=== PATIENT | male | born 1960 | race Caucasian/White ===

== ENCOUNTER 2017-05-14 13:57 | Day surgery (SDC) | payer OTHER ==
[~2017-05-14] VITALS: Ht 175.3 cm; Wt 91.3 kg
[2017-05-14] VITALS (8 sets, daily range): BP systolic 125–145; BP diastolic 84–94; PULSE 68–82; RESP 11–17; O2SAT 94–97
[~2017-05-14 13:57] MED LIST: FENO160T PO; HYDR30CR74 RC; LISI10TA PO; Lactated Ringer's 1,000 ML IV SCH; PRAV40TA PO
[2017-05-14] MEDS ORDERED: Dexamethasone 4 mg/mL Inj ONE (13:58)
[2017-05-14] MEDS ORDERED: fentaNYL-PF 50 mCg/mL 2 mL Inj ONE (13:58)
[2017-05-14] MEDS ORDERED: Ondansetron 2 mg/mL 2 mL Inj ONE (13:58)
[2017-05-14] MEDS ORDERED: Ketamine 10 mg/mL 20 mL Inj ONE (13:58)
[2017-05-14] MEDS ORDERED: Propofol 10,000 mCg/mL 20 mL Inj ONE (13:58)
[2017-05-14] MEDS ORDERED: Lactated Ringer's 1,000 ML IV ONE (17:28)
[2017-05-14] MEDS ORDERED: Lactated Ringer's 1,000 ML IV SCH (17:43)
[2017-05-14] MEDS ORDERED: Lactated Ringer's 500 ML IV PRN (17:43)
--- NOTE | 2017-05-14 17:43 | PCM.HPANE ---
Patient Data Surgeon Admitting Provider: Attending Provider:Araceli Byrne MD Primary Care Physician:Jose Alfredo Harvey MD Other Provider: Reason for Visit Internal And External Hemorrhoids Ht/WT & BMI Height (Feet): 5 Height (Inches): 9 Weight (Kilograms): 91.3 Body Mass Index 29.00 Allergies Coded Allergies: No Known Allergies (Verified , 09/04/16) Past Anesthesia History Anesthesia History: Denies:: Abnormal Airway, Anesthesia Reactions, Difficult Intubation, Fam Anesthesia Reaction (uncle- cannot take novocaine of any kind), Fam Malignant Hypertherm, Malignant Hyperthermia Diabetes History Hx Diabetes?: No MRSA MRSA: No Medications Hypertension Medication: Yes Home Meds Incl Beta Flynn: No Reported Medications Fenofibrate (Tricor)145 Mg [id number] Mg PO DAILY 30 Days Ref 0 05/06/17 Hydrocortisone (Proctozone-Hc)30 Gm Cream.appl30 Gm RC PRN rectal pain 05/06/17 Pravastatin 40 Mg [id number] Mg PO DAILY Ref 0 05/06/17 Lisinopril 10 Mg [id number] Mg PO DAILY 30 Days Ref 0 05/06/17 History History of ENT Problems?: Yes HEENT History: Positive for:: Hearing Problem Denies:: Abnormal Airway Cataracts (monitoring - no surgery) Difficult Intubation Dysphagia Glaucoma Sinus Problem Denture Type: None Teeth Condition: Within Normal Limits Hx of Heart Problems?: Yes Cardiovascular History: Positive for:: Hypertension Irregular Heartbeat (remote hx of wof parkinsons white (not for 19 years)) Denies:: AICD Heart Murmur Pacemaker Peripheral Vascular Hx of Respiratory Problem?: No Respiratory History: Denies:: Asthma COPD Emphysema Oxygen Administration Pneumonia Tuberculosis Use of C-PAP Machine Use of Inhalers / NEBS Hx Neurologic Problems?: No Neurological History: Denies:: CVA Dementia Headaches (not for many years) Multiple Sclerosis Parkinson's Disease Seizures Hx of GI Problems?: Yes Hx of Problems?: No Genitourinary History: Denies:: Kidney Stones Urinary Tract Infection Skin History: Denies:: History Skin Disorders? Pressure Ulcers Hx Musculoskeletal Problems?: No Musculoskeletal History: Denies:: Back Injury Degenerative Joint Fibromyalgia Joint Replacement Myasthenia Gravis Osteoarthritis Systemic Lupus Psycho Social History: Denies:: Anxiety Hx Depression Hx Surgeries?: Yes (RIGHT THUMB, RIGHT ELBOW, LEFT SHOULDER, TONSILS) Hx Any Other Health Problems?: Yes Other History: Denies:: Cancer Thyroid Disease History Blood Transfusions: Positive for:: Accept Blood Products? Denies:: Blood Transfusions Hx Diabetes: No Hx Alcohol Use: YesAlcoholic Drinks Per Day: 3-4 drinks day- (2 days week only )Hx Substance Use: No Smoking Status: Current Every Day Smoker Have You Smoked inLast 12 mo: Yes (4 cigars daily ) Stop/Bang S-Snoring: Do You Snore Loudly: No T-Tired: feel tired, fatigued: No O-Obsered: Observed not breath: No P-Blood Pressure: treated: Yes B- Body Mass Index > 35 kg/m2: No A- Age over 50: Yes N- Neck Large Circumference: No G- Gender Male: Yes ANA Total Score: 3 Risk Assessment Category Category 1A: Patient has history of documented sleep apnea, and HAS NOT received any narcotic, sedative or anesthesia administration during this stay. Category 1B: Patient has history of documented sleep apnea, and HAS received any narcotic , sedative or anesthesia administration during this stay Category 2: Patient has SUSPECTED Obstructive Sleep Apnea, and HAS received any narcotic , sedative or anesthesia administration during this stay. Category 3: Patient has SUSPECTED Obstructive Sleep Apnea and HAS NOT received narcotic, sedative or anesthesia administration during this stay. Category 4: Outpatient in Procedural Areas with known sleep apnea or who screen positive for High Risk via the STOP/BANG questionnaire. Exam Exam Vital Signs Vital Signs Date Time Temp Pulse Resp B/P Pulse Ox O2 Delivery O2 Flow Rate FiO2 05/14/17 14:25 36.3 82 16 145/88 97 Room Air General Appearance: Alert HEENT/AIRWAY: MP 2, Neck Movement (from, 3 fb) Lungs: Clear to Auscultation Heart: Regular Rate/Rhythm Plan Impression Patient chart reviewed, patient interviewed and anesthestic plan with risks, benefits, and alternatives discussed, and informed consent obtained. NPO per Anesth. Guidelines: Yes ASA Physical Status: ASA2 Mod Systemic Disease Anesthetic Plan: GA Bene/Risks/Altern/Consents: Yes HP Complete Prior to Induction: Yes Demetris Cole MD May 14, 2017 15:45
[2017-05-14] MEDS ORDERED: Bupivacaine Liposome 1.3% 20 mL Inj ONE (17:44)
[2017-05-14] MEDS ORDERED: EPHEDrine Sulfate 50 mg/mL Inj IVPUSH PRN (17:45)
[2017-05-14] MEDS ORDERED: HYDROmorphone 1 mg/mL Inj IVPUSH PRN (17:45)
[2017-05-14] MEDS ORDERED: Ondansetron 2 mg/mL 2 mL Inj IVPUSH PRN (17:45)
[2017-05-14] MEDS ORDERED: Phenylephrine 10,000 mCg/mL Inj IVPUSH PRN (17:45)
[2017-05-14] MEDS ORDERED: Dexamethasone 4 mg/mL Inj IVPUSH PRN (17:45)
[2017-05-14] MEDS ORDERED: fentaNYL-PF 50 mCg/mL 2 mL Inj IVPUSH PRN (17:45)
[2017-05-14] MEDS ORDERED: MetoCLOpramide 5 mg/mL 2 mL Inj IVPUSH PRN (17:45)
[2017-05-14] MEDS ORDERED: Bupivacaine Liposome 1.3% 20 mL Inj INFILTRATE ONE (17:49)
[2017-05-14] MEDS ORDERED: Bupivacaine-MPF 0.5% 30 mL Inj INFILTRATE ONE (17:49)
[2017-05-14] MEDS ORDERED: oxyCODONE-Acetamin 5-325 mg Tablet PO PRN (18:15)
--- NOTE | 2017-05-14 18:16 | PCM.SURGOP ---
Surgical Operative Report Date of Service: May 14, 2017 Pre Operative Diagnosis Symptomatic internal and external hemorrhoids Post Operative Diagnosis Symptomatic internal and external hemorrhoids Procedure: Excision of external hemorrhoid 1 and and internal hemorrhoids 3 Surgeon and [employer]: Surgeon: Araceli Byrne MD Assistants: Mian Burrell MD R3; Sierra Canseco MS3 Indication for Procedure This is a 57-year-old man who has had hemorrhoids for many years refractory to conservative management. Colonoscopy was performed and was benign. Anoscopy revealed internal hemorrhoids and one large left posterior lateral skin tag. Findings: The left posterolateral internal and external hemorrhoidal column was removed. Internal hemorrhoids were removed at the right anterolateral and right posterolateral positions as well. Procedure Details The patient was brought to the operating room and placed in supine position. General anesthesia was induced. He was repositioned into high lithotomy. The operative field was prepped and draped in sterile fashion. A surgical timeout was performed. Examination under anesthesia revealed a single left posterior lateral external hemorrhoid. It also revealed circumferential internal hemorrhoids, the largest at the left posterolateral position, right anterolateral position, and right posterior lateral positions.The left posterolateral internal and external hemorrhoidal column was removed using a LigaSure device for the internal hemorrhoids and a 15 blade for excision for the external hemorrhoid, which was closed with a running 3-0 chromic stitch. Internal hemorrhoids were removed at the right anterolateral and right posterolateral positions as well using the LigaSure. 1/2% Marcaine was injected circumferentially around the anus for postoperative pain control. Liposomal bupivacaine was injected circumferentially around the anus as well for postoperative pain control. A pad was placed. The patient was awakened from general anesthesia and taken to the postoperative area in good condition. Complications There were no periprocedural complications identified. Surgical Specimen Removed: Yes Specimen sent to Pathology: No Surgical Specimen description: Hemorrhoids as described above Anesthetic Plan: GA Grafts, Implants: None Output, Estimated Blood Loss: 5 (ml) Blood Administration during ryan: No Araceli Byrne MD May 14, 2017 18:16
--- NOTE | 2017-05-14 18:22 | PCM.ANEP1 ---
Post Anesthesia PACU Phase 1 Assessment Vital Signs Vital Signs Date Time Temp Pulse Resp B/P Pulse Ox O2 Delivery O2 Flow Rate FiO2 05/14/17 18:20 78 11 136/94 96 Room Air 05/14/17 18:18 36 75 17 132/84 96 Room Air 05/14/17 14:25 36.3 82 16 145/88 97 Room Air Anesthetic Administered: GA Level of Alertness: Awake, talking SOTO's with Equal Strength: Yes Pain: No Nausea or Vomiting: No CV Function & Hydration Stable: Yes Airway Device: Oxygen Delivery: Simple Mask Lungs: Clear to Auscultation PACU Phase 2 Assessment Complications: No Follow up Care: N/A Patient Instructions Provided: N/A Demetris Cole MD May 14, 2017 18:22
--- NOTE | 2017-05-14 18:27 | PCM.DISURG ---
Surgical Discharge Instruction Date of Service May 14, 2017 Dates of Hospitalization Date of Hospital Admission Providers Admitting Physician: Primary Care Physician: Jose Alfredo Harvey MD Attending Physician: Araceli Byrne MD Discharge Diagnosis Post Operative diagnosis Symptomatic internal and external hemorrhoids Diet Discharge Diet: No restrictions Activity Discharge Activity-General: Be up and about, Activity as pain allows, No driving while taking narcotic Dressing and Incisional Care Dressing Care: Keep dressing clean, dry & intact Hygiene: May shower, Other (Ok to bathe and take sitz baths as tolerated) Additional Instructions Discharge Instructions - Alternate between tylenol and ibuprofen around the clock - Take oxycodone as needed for severe pain - Use miralax to promote smooth and soft stools while you are healing Follow Up Plan Follow Up Plan Follow up in the general surgery clinic in the next 2-3 weeks. Call at any time with questions or concerns. Call your provider for: Fever, Chills, Wound redness, Discharge @ incision, pus discharge Dakota Burrell MD May 14, 2017 18:27
== END 2017-05-14 23:59 | disposition home or self-care (01) ==
LOC: SAS 13:57
PROVIDERS: ATTEND Surgery
DX: K64.8 Other hemorrhoids (principal); K64.4 Residual hemorrhoidal skin tags; I10 Essential (primary) hypertension; E78.5 Hyperlipidemia, unspecified; R73.03 Prediabetes; F17.210 Nicotine dependence, cigarettes, uncomplicated
CPT/HCPCS: 46260; J1100; J2250; J2405; J2704; J3010; J7120